=== PATIENT | female | born 1985 | race Two or more races ===

== ENCOUNTER 2017-12-05 17:20 | Inpatient (IN) | payer OTHER ==
[2017-12-05 18:43] LABS: URINE HCG POC HCG NEGATIVE (Negative)
[2017-12-05 18:45] LABS: BILIRUBIN,URINE SMALL (NEG); CLARITY,URINE CLEAR; COLOR,URINE AMBER; GLUCOSE,URINE NEGATIVE (NEG); NITRITE,URINE POSITIVE (NEG); PROTEIN,URINE 30 mg/dL (NEG-TRACE)
[2017-12-05] MEDS: ACETAMINOPHEN 325 MG TABLET. PO (18:52)
[2017-12-05] MEDS: IBUPROFEN 800 MG TABLET. PO (18:52)
[2017-12-05] MEDS: ONDANSETRON PF 4 MG/2 ML VIAL. IV (18:53)
[2017-12-05] MEDS: MORPHINE SULFATE 4 MG/ML DISP.SYRIN. IV (18:54)
[2017-12-05] MEDS: IV NORMAL SALINE 1000ML BAG 1,000 ML IV ×3 (18:54→20:44)
[2017-12-05 18:57] LABS: ADD MAN DIFF? NO
[2017-12-05 19:00] LABS: BASO % 0 % (0-3); EOS % 0 % (0-3); HEMATOCRIT 34.5 % (36.0-47.0); HEMOGLOBIN 11.3 g/dL (12.0-15.5); LYMPH # 0.7 x10^3/uL (1.0-4.8); LYMPH % 7 % (24-48); MEAN CORPUSCULAR HEMOGLOBIN 24 pg (25-35); MEAN CORPUSCULAR HGB CONC 33 g/dL (31-37); MEAN CORPUSCULAR VOLUME 73 fL (79-100); MONO # 0.9 x10^3/uL (0.0-1.1); MONO % 9 % (0-9); NEUT # 8.1 x10^3uL (1.8-7.7); NEUT % 84 % (31-73); PLATELET COUNT 152 x10^3/uL (140-400); RED BLOOD COUNT 4.74 x10^6/uL (3.50-5.40); RED CELL DISTRIBUTION WIDTH 16.4 % (11.5-14.5); WHITE BLOOD COUNT 9.7 x10^3/uL (4.0-11.0)
[2017-12-05 19:07] LABS: WBC,URINE TNTC /HPF (0-4)
[2017-12-05 19:08] LABS: ANION GAP 13 (6-14); BACTERIA,URINE MANY /HPF (0-FEW); BLOOD UREA NITROGEN 12 mg/dL (7-20); BUN/CREATININE RATIO 11 (6-20); CALCIUM 8.4 mg/dL (8.5-10.1); CARBON DIOXIDE 24 mmol/L (21-32); CHLORIDE 97 mmol/L (98-107); CREATININE 1.1 mg/dL (0.6-1.0); GFR 57.6; GLUCOSE 113 mg/dL (70-99); POTASSIUM 3.3 mmol/L (3.5-5.1); SODIUM 134 mmol/L (136-145); SQUAMOUS EPITHELIAL CELL,UR MANY /LPF
[2017-12-05 19:14] LABS: ALBUMIN 3.4 g/dL (3.4-5.0); ALBUMIN/GLOBULIN RATIO 0.7 (1.0-1.7); ALK PHOS 139 U/L (46-116); ALT (SGPT) 74 U/L (14-59); AST (SGOT) 63 U/L (15-37); LIPASE 112 U/L (73-393); TOTAL BILIRUBIN 0.9 mg/dL (0.2-1.0); TOTAL PROTEIN 8.6 g/dL (6.4-8.2)
[2017-12-05] MEDS ORDERED: CONTRAST GIVEN MC (20:00)
[2017-12-05] MEDS: IOHEXOL 300 MG/ML 100ML VIAL. IV (20:08)
[2017-12-05 20:23] LABS: LACTIC ACID 1.1 mmol/L (0.4-2.0)
[2017-12-05] MEDS: POTASSIUM CHLORIDE 20 MEQ TABLET.ER. PO (20:43)
[2017-12-05] MEDS ORDERED: fentaNYL PF VIAL 100 MCG/2 ML VIAL IV (21:15)
[2017-12-06] MEDS: ACETAMINOPHEN 325 MG TABLET. PO ×3 (05:14→20:38)
[2017-12-06 05:26] LABS: ADD MAN DIFF? NO
[2017-12-06 05:38] LABS: BASO % 0 % (0-3); EOS % 0 % (0-3); HEMATOCRIT 31.4 % (36.0-47.0); HEMOGLOBIN 10.3 g/dL (12.0-15.5); LYMPH # 0.9 x10^3/uL (1.0-4.8); LYMPH % 11 % (24-48); MEAN CORPUSCULAR HEMOGLOBIN 24 pg (25-35); MEAN CORPUSCULAR HGB CONC 33 g/dL (31-37); MEAN CORPUSCULAR VOLUME 73 fL (79-100); MONO # 0.8 x10^3/uL (0.0-1.1); MONO % 9 % (0-9); NEUT # 6.7 x10^3uL (1.8-7.7); NEUT % 80 % (31-73); PLATELET COUNT 113 x10^3/uL (140-400); RED CELL DISTRIBUTION WIDTH 16.3 % (11.5-14.5); WHITE BLOOD COUNT 8.3 x10^3/uL (4.0-11.0)
[2017-12-06 06:55] LABS: ALBUMIN 2.4 g/dL (3.4-5.0); ALBUMIN/GLOBULIN RATIO 0.6 (1.0-1.7); ALK PHOS 111 U/L (46-116); ALT (SGPT) 59 U/L (14-59); ANION GAP 10 (6-14); AST (SGOT) 42 U/L (15-37); BLOOD UREA NITROGEN 10 mg/dL (7-20); BUN/CREATININE RATIO 13 (6-20); CALCIUM 7.6 mg/dL (8.5-10.1); CARBON DIOXIDE 22 mmol/L (21-32); CHLORIDE 108 mmol/L (98-107); CREATININE 0.8 mg/dL (0.6-1.0); GFR 83.1; GLUCOSE 84 mg/dL (70-99); SODIUM 140 mmol/L (136-145); TOTAL BILIRUBIN 0.5 mg/dL (0.2-1.0); TOTAL PROTEIN 6.6 g/dL (6.4-8.2)
[2017-12-06] MEDS ORDERED: cefTRIAXone SODIUM 2 GM in IV DEXTROSE 5% 100 ML IV (11:15)
[2017-12-06 12:06] LABS: LACTIC ACID 1.1 mmol/L (0.4-2.0)
[2017-12-06] MEDS: ENOXAPARIN 40 MG/0.4 ML SYRINGE. SQ (16:24)
[2017-12-06] MEDS: IV NORMAL SALINE 1000ML BAG 1,000 ML IV ×2 (16:25→16:57)
[2017-12-06] MEDS: ONDANSETRON PF 4 MG/2 ML VIAL. IV (16:56)
[2017-12-06] MEDS: VANCOMYCIN 1.25 GM in IV DEXTROSE 5 %-0.2 % NACL 250 ML IV (16:57)
[2017-12-06] MEDS: cefTRIAXone IV Push 1 GM VIAL. IVP (18:00)
[2017-12-06] MEDS: VANCOMYCIN PER PHARMACY MC (18:12)
[2017-12-06] MEDS ORDERED: cefTRIAXone IV Push 1 GM VIAL. IVP (19:00)
[2017-12-06] MEDS: LACTOBACILLUS RHAMNOSUS GG 1 CAPSULE. PO (20:38)
[2017-12-07] MEDS: VANCOMYCIN 750 MG in IV DEXTROSE 5 %-0.2 % NACL 250 ML IV ×2 (05:01→16:56)
[2017-12-07 05:16] LABS: ADD MAN DIFF? NO
[2017-12-07 05:24] LABS: BASO % 0 % (0-3); EOS % 1 % (0-3); HEMATOCRIT 27.2 % (36.0-47.0); HEMOGLOBIN 8.9 g/dL (12.0-15.5); LYMPH # 1.2 x10^3/uL (1.0-4.8); LYMPH % 20 % (24-48); MEAN CORPUSCULAR HEMOGLOBIN 24 pg (25-35); MEAN CORPUSCULAR HGB CONC 33 g/dL (31-37); MEAN CORPUSCULAR VOLUME 73 fL (79-100); MONO # 0.7 x10^3/uL (0.0-1.1); MONO % 11 % (0-9); NEUT # 4.3 x10^3uL (1.8-7.7); NEUT % 68 % (31-73); PLATELET COUNT 126 x10^3/uL (140-400); RED BLOOD COUNT 3.74 x10^6/uL (3.50-5.40); RED CELL DISTRIBUTION WIDTH 16.9 % (11.5-14.5); WHITE BLOOD COUNT 6.4 x10^3/uL (4.0-11.0)
[2017-12-07 05:45] LABS: ALBUMIN 2.2 g/dL (3.4-5.0); ALBUMIN/GLOBULIN RATIO 0.6 (1.0-1.7); ALK PHOS 142 U/L (46-116); ALT (SGPT) 44 U/L (14-59); ANION GAP 10 (6-14); AST (SGOT) 23 U/L (15-37); BLOOD UREA NITROGEN 6 mg/dL (7-20); BUN/CREATININE RATIO 9 (6-20); CALCIUM 8.2 mg/dL (8.5-10.1); CARBON DIOXIDE 22 mmol/L (21-32); CHLORIDE 108 mmol/L (98-107); CREATININE 0.7 mg/dL (0.6-1.0); GLUCOSE 86 mg/dL (70-99); POTASSIUM 3.2 mmol/L (3.5-5.1); SODIUM 140 mmol/L (136-145); TOTAL BILIRUBIN 0.3 mg/dL (0.2-1.0); TOTAL PROTEIN 6.2 g/dL (6.4-8.2)
[2017-12-07 08:09] LABS: POC GLUCOSE 108 mg/dL (70-99)
[2017-12-07] MEDS: LACTOBACILLUS RHAMNOSUS GG 1 CAPSULE. PO ×2 (08:52→20:45)
[2017-12-07] MEDS: cefTRIAXone IV Push 1 GM VIAL. IVP ×2 (08:52→20:45)
[2017-12-07] MEDS ORDERED: POTASSIUM CHLORIDE 20MEQ 50 ML IV (11:00)
[2017-12-07] MEDS: POTASSIUM CHLORIDE 20 MEQ TABLET.ER. PO ×2 (11:31→13:22)
[2017-12-07] MEDS: VANCOMYCIN PER PHARMACY MC (12:58)
[2017-12-07] MEDS: ENOXAPARIN 40 MG/0.4 ML SYRINGE. SQ (15:07)
[2017-12-07] MEDS: ACETAMINOPHEN 325 MG TABLET. PO (15:12)
[2017-12-08] MEDS: ACETAMINOPHEN 325 MG TABLET. PO (03:29)
[2017-12-08 04:51] LABS: ADD MAN DIFF? NO
[2017-12-08 04:54] LABS: BASO % 0 % (0-3); EOS # 0.1 x10^3/uL (0.0-0.7); EOS % 1 % (0-3); HEMATOCRIT 27.9 % (36.0-47.0); HEMOGLOBIN 9.4 g/dL (12.0-15.5); LYMPH # 1.2 x10^3/uL (1.0-4.8); LYMPH % 21 % (24-48); MEAN CORPUSCULAR HEMOGLOBIN 24 pg (25-35); MEAN CORPUSCULAR HGB CONC 34 g/dL (31-37); MEAN CORPUSCULAR VOLUME 72 fL (79-100); MONO # 0.6 x10^3/uL (0.0-1.1); MONO % 10 % (0-9); NEUT # 3.8 x10^3uL (1.8-7.7); NEUT % 68 % (31-73); PLATELET COUNT 192 x10^3/uL (140-400); RED BLOOD COUNT 3.89 x10^6/uL (3.50-5.40); RED CELL DISTRIBUTION WIDTH 16.7 % (11.5-14.5); WHITE BLOOD COUNT 5.6 x10^3/uL (4.0-11.0)
[2017-12-08 05:14] LABS: ALBUMIN 2.3 g/dL (3.4-5.0); ALBUMIN/GLOBULIN RATIO 0.5 (1.0-1.7); ALK PHOS 140 U/L (46-116); ALT (SGPT) 40 U/L (14-59); ANION GAP 8 (6-14); AST (SGOT) 22 U/L (15-37); BLOOD UREA NITROGEN 5 mg/dL (7-20); BUN/CREATININE RATIO 6 (6-20); CALCIUM 8.7 mg/dL (8.5-10.1); CARBON DIOXIDE 24 mmol/L (21-32); CHLORIDE 105 mmol/L (98-107); CREATININE 0.8 mg/dL (0.6-1.0); GFR 83.1; GLUCOSE 106 mg/dL (70-99); POTASSIUM 3.4 mmol/L (3.5-5.1); SODIUM 137 mmol/L (136-145); TOTAL BILIRUBIN 0.3 mg/dL (0.2-1.0); TOTAL PROTEIN 6.7 g/dL (6.4-8.2)
[2017-12-08 05:16] LABS: VANC TR 5.6 mcg/mL (10.0-20.0)
[2017-12-08] MEDS: VANCOMYCIN 1 GM in IV DEXTROSE 5 %-0.2 % NACL 250 ML IV (05:35)
[2017-12-08] MEDS: VANCOMYCIN PER PHARMACY MC (05:53)
[2017-12-08 08:00] LABS: ANISOCYTOSIS SLIGHT; PLT ESTIMATE ADEQUATE (ADEQUATE)
[2017-12-08 08:01] LABS: HYPOCHROMIA PRESENT; MICROCYTOSIS MOD
[2017-12-08] MEDS ORDERED: HYDROcodone/APAP 5/325MG 1 TAB TABLET PO (08:45)
[2017-12-08] MEDS: cefTRIAXone IV Push 1 GM VIAL. IVP (09:00)
[2017-12-08] MEDS: NAPROXEN 500 MG TABLET PO ×2 (09:15→16:39)
[2017-12-08] MEDS: LACTOBACILLUS RHAMNOSUS GG 1 CAPSULE. PO ×2 (09:15→20:40)
[2017-12-08] MEDS: IV NORMAL SALINE 1000ML BAG 1,000 ML IV ×2 (11:43→21:00)
[2017-12-08] MEDS: PIPERACILLIN/TAZOBACTAM 3.375 GM in IV NORMAL SALINE 50ML 50 ML IV ×3 (11:43→23:50)
[2017-12-08] MEDS: ENOXAPARIN 40 MG/0.4 ML SYRINGE. SQ (16:40)
[2017-12-09] MEDS: PIPERACILLIN/TAZOBACTAM 3.375 GM in IV NORMAL SALINE 50ML 50 ML IV ×3 (05:10→17:54)
[2017-12-09] MEDS: LACTOBACILLUS RHAMNOSUS GG 1 CAPSULE. PO ×2 (08:11→20:33)
[2017-12-09] MEDS: NAPROXEN 500 MG TABLET PO ×2 (08:12→17:00)
[2017-12-09] MEDS: IV NORMAL SALINE 1000ML BAG 1,000 ML IV ×2 (08:15→17:54)
[2017-12-09] MEDS: ENOXAPARIN 40 MG/0.4 ML SYRINGE. SQ (15:32)
[2017-12-10] MEDS: PIPERACILLIN/TAZOBACTAM 3.375 GM in IV NORMAL SALINE 50ML 50 ML IV ×3 (00:41→12:00)
[2017-12-10] MEDS: IV NORMAL SALINE 1000ML BAG 1,000 ML IV (05:24)
[2017-12-10] MEDS: NAPROXEN 500 MG TABLET PO (07:35)
[2017-12-10] MEDS: LACTOBACILLUS RHAMNOSUS GG 1 CAPSULE. PO (08:11)
== END 2017-12-10 13:29 | disposition home or self-care (01) | DRG 872 ==
LOC: ER 17:20 → 5 NORTH 20:31
DX: A41.9 Sepsis, unspecified organism (principal); E44.0 Moderate protein-calorie malnutrition; K75.9 Inflammatory liver disease, unspecified; N10 Acute pyelonephritis; J98.11 Atelectasis; E86.0 Dehydration
CPT/HCPCS: 36415; 71046; 74177; 76770; 80053; 80202; 81001; 81025; 82962; 83605; 83690; 85025; 87040; 87086; 96361; 96365; 96375; 96376; 99285; 99285-25; J0690; J0696; J1650; J2270; J2405; J2543; J3370; J7030; Q9967

== ENCOUNTER 2018-10-17 11:04 | Emergency (ER) | payer OTHER ==
[~2018-10-17] VITALS: Ht 154.9 cm; Wt 46.3 kg
[~2018-10-17 11:04] MED LIST: AMOX1TAB61 PO; HYDR-3164 PO; LACT1CAP19 PO; NAPR-514 PO
[2018-10-17 11:14] VITALS: BP 107/61
[2018-10-17] MEDS ORDERED: AMOX1TAB61 PO (12:03)
--- NOTE | 2018-10-17 12:03 | PHYS DOC ---
Past Medical History Past Medical History: No Pertinent History Past Surgical History: No Surgical History Alcohol Use: None Drug Use: None Adult General Chief Complaint Chief Complaint: BREAST PAIN/INJURY HPI HPI Patient is a 32 year old female who presents to the ER with complaints of R breast redness, warmth, and tenderness for the last 3 days. Pt states she has felt like she has a fever but has not measured her temperature. She is currently breast feeding her 16 month old infant. Pt denies any decrease in milk production. Currently, she rates her discomfort a 5/10 on the pain scale, there are no alleviating factors, touch exacerbates the pain. Review of Systems Review of Systems Constitutional: reports tactile fever Eyes: Denies redness, or eye pain [] HENT: Denies nasal congestion or sore throat [] Respiratory: Denies cough or shortness of breath [] Cardiovascular: No additional information not addressed in HPI [] Integument: See HPI Neurologic: Denies headache, focal weakness or sensory changes [] Complete systems were reviewed and found to be within normal limits, except as documented in this note. Allergies Allergies Allergies Coded Allergies Type Severity Reaction Last Updated Verified No Known Drug Allergies 05/30/17 No Physical Exam Physical Exam Constitutional: Well developed, well nourished, no acute distress, non-toxic appearance. [] HENT: Normocephalic, atraumatic, bilateral external ears normal, nose normal. [] Eyes: PERRLA, conjunctiva normal, no discharge. [] Neck: Normal range of motion, no stridor. [] Lungs & Thorax: respirations even and unlabored Breast: erythema and warmth consistent with mastitis noted between 7:00 and 9: 00 of right breast, no visible abscess[] Skin: Warm, dry, Neurologic: Alert and oriented X 3, normal motor function, normal sensory function, no focal deficits noted. [] Psychologic: Affect normal, judgement normal, mood normal. [] Current Patient Data Vital Signs Vital Signs Date Time Temp Pulse Resp B/P (MAP) Pulse Ox O2 Delivery O2 Flow Rate FiO2 10/17/18 11:14 98.4 81 16 107/61 (76) 100 Room Air 98.4 EKG EKG [] Radiology/Procedures Radiology/Procedures [] Course & Med Decision Making Course & Med Decision Making Pertinent Labs and Imaging studies reviewed. (See chart for details) [] Dragon Disclaimer Dragon Disclaimer This electronic medical record was generated, in whole or in part, using a voice recognition dictation system. Departure Departure Impression: Primary Impression: Acute mastitis of right breast Disposition: HOME, SELF-CARE Condition: STABLE Referrals: NO PCP (PCP) Patient Instructions: , Mastitis Additional Instructions: Fill the prescription and use as directed. Follow up with your primary care doctor if symptoms persist, return to the ER if symptoms worsen. Scripts Amoxicillin/Potassium Clav (AUGMENTIN 875-125 TABLET) 1 Each Tablet 1 TAB PO BID, #20 TAB 0 Refills Prov: SAMMY LESLIE APRN 10/17/18 SAMMY LESLIE APRN Oct 17, 2018 12:03
== END 2018-10-17 12:21 | disposition home or self-care (01) ==
LOC: ER 11:04
DX: N61.0 Mastitis without abscess (principal)
CPT/HCPCS: 99283